=== PATIENT | female | born 1960 | race Caucasian/White ===

== ENCOUNTER 2023-08-06 14:09 | Emergency (ER) | payer OTHER, SELFPAY ==
[2023-08-06] VITALS (22 sets, daily range): BP systolic 104–199; BP diastolic 54–91; PULSE 64–93; RESP 6–18; TEMP 36.8; O2SAT 84–100; BMI 23.8
--- NOTE | 2023-08-06 14:15 | DI.RAD.S_ITS ---
PROCEDURE: XR KNEE RT 1TO2V INDICATIONS: post knee replacement oct, buckled, now deformity/pain TECHNIQUE: 2 views of the knee were acquired. COMPARISON: None. FINDINGS: Bones: There is total knee arthroplasty. There is a transverse fracture with displacement and angulation in the distal femoral shaft involving the femoral component of the prosthesis. No suspicious bony lesions. Soft tissues: No joint effusion. No suspicious soft tissue calcifications. IMPRESSION: 1. Right knee total arthroplasty. There is transverse periprosthesis fracture with displacement and angulation. Dictated by: Clark Arauz M.D. on 08/06/2023 at 14:42 Approved by: Clark Arauz M.D. on 08/06/2023 at 14:44
--- NOTE | 2023-08-06 14:37 | ED_ITS ---
HPI - Extremity Injury (Lower) <Hero Onofre MD - Last Filed: 08/07/23 13:23> General Chief Complaint: Extremity Injury, Lower Stated Complaint: knee pain Time Seen by Provider: 08/06/23 14:15 History of Present Illness HPI Narrative: This is a 62-year-old female with a history of right total knee replacement who arrives by helicopter from [facility]. History is provided by the patient and the transporting crew. Patient says that she was walking up some steps in her home today felt the abrupt onset of pain in her right knee and then the right knee ?collapsed?. She was worried she was going to fall down the stairs and she ended up in a kneeling position. Since then she has had severe pain in the right knee as well as swelling. She tells me that her knee replacement was done 3 years ago at [facility] by a doctor Alan Medrano. Past medical history is otherwise remarkable for vulvar cancer. She has not anticoagulated. She has not had anything to eat today. After reviewing her x-ray, I believe that she will need to be transferred to a tertiary care center and advised her that we will be contacting her orthopedic surgeon for possible transfer, patient is in agreement. Pre arrival medications include 150 mcg of fentanyl, 10 mg of morphine, 8 mg of Zofran and 2 mg of lorazepam Related Data Previous Rx's Medication Instructions Recorded duloxetine 30 mg capsule,delayed 30 mg PO BID #180 caps 06/04/23 release (Cymbalta) trazodone 100 mg tablet 150 mg (1.5 x 100 mg) PO BEDTIME 07/02/23 #45 tabs cyclobenzaprine 10 mg tablet 10 mg PO TID PRN muscle spasm #30 07/05/23 tabs pregabalin 225 mg capsule 225 mg PO BEDTIME #60 caps 07/05/23 pregabalin 75 mg capsule See Rx Instructions PO TID #90 caps 07/05/23 Allergies Allergy/AdvReac Type Severity Reaction Status Date / Time trazodone Allergy Mild TONGUE AND Verified 07/05/23 16:43 LIPS STARTED TO TINGLE Patient History <Hero Onofre MD - Last Filed: 08/07/23 13:23> Medical History (Updated 08/07/23 @ 00:27 by Brianna Blackwell RN) Vulvar lesion Insomnia secondary to chronic pain Fractures (~2018) Chronic back pain (~2019) Ankle pain Chicken pox Encounter for screening mammogram for malignant neoplasm of breast Essential hypertension Chronic pain of right knee Surgical History (Updated 05/14/23 @ 20:40 by America Reese MD) H/O knee surgery History of knee replacement (~2018) Social History Smoking Status: Never smoker additional social history: Patient used to be a dancer Smoking Status: Never smoker Exam <Hero Onofre MD - Last Filed: 08/07/23 13:23> Initial Vital Signs Initial Vital Signs: Vital Signs Pulse Rate 73 08/06/23 14:15 Blood Pressure 199/91 H 08/06/23 14:15 Pulse Oximetry 96 08/06/23 14:15 Patient is somnolent, arouses to voice, no respiratory depression. HENMT Head: normocephalic and atraumatic Resp Effort & Inspection: normal respiratory effort Skin Other: Warm and dry Extrem Other: Right lower extremity has surgical scars consistent with previous total knee replacement. Knee is held at about 35? of flexion. There is swelling about the knee. Any movement of the knee causes the patient considerable pain. She has intact pedal pulses sensation and movement <Danna Feng DO - Last Filed: 08/06/23 23:23> Initial Vital Signs Initial Vital Signs: Vital Signs Pulse Rate 73 08/06/23 14:15 Blood Pressure 199/91 H 08/06/23 14:15 Pulse Oximetry 96 08/06/23 14:15 Course <Hero Onofre MD - Last Filed: 08/07/23 13:23> Orders Ordered: Discontinued Medications Acetaminophen (Acetaminophen 325 Mg Tablet) 975 mg PO Q6H PRN PRN Reason: Pain, Moderate (4-6) Hydromorphone HCl (Hydromorphone 1 Mg Inj) 1 mg IV NOW ONE Stop: 08/06/23 18:11 Last Admin: 08/06/23 18:20 Dose: 1 mg Documented By: SPF Hydromorphone HCl (Hydromorphone 1 Mg Inj) 1 mg IV Q3H PRN PRN Reason: Pain, Severe (7-10) Sodium Chloride (Normal Saline 0.9%) 1,000 mls @ 125 mls/hr IV CONT ASHLIE Last Admin: 08/06/23 15:11 Dose: 125 mls/hr Documented By: OZZY Lorazepam (Lorazepam 2 Mg/Ml Inj) 1 mg IV NOW ONE Stop: 08/06/23 18:56 Last Admin: 08/06/23 18:59 Dose: 1 mg Documented By: OZZY Metoclopramide HCl (Metoclopramide 10 Mg/2 Ml Inj) 10 mg IV NOW ONE Stop: 08/06/23 18:36 Last Admin: 08/06/23 18:46 Dose: 10 mg Documented By: OZZY Consultations Consultation #1: D/W Dr Mitchell quiroz's orthopedist- he is out of town, will facilitate transfer if needed, asks we contact local ortho Consultation #2: D/W [place], Dr Sanchez transfer if possible, will be at least 2 days before this could be done here Vital Signs Vital signs: Vital Signs - 8 hr 08/06/23 15:30 08/06/23 15:42 08/06/23 15:42 Pulse Rate 70 69 Respiratory Rate 15 18 Blood Pressure 148/63 H Pulse Oximetry 98 92 Oxygen Delivery Method Oxygen Flow Rate 08/06/23 16:00 08/06/23 16:16 08/06/23 16:17 Pulse Rate 71 68 Respiratory Rate 15 15 13 Blood Pressure Pulse Oximetry 98 89 L 96 Oxygen Delivery Method Room Air Room Air Room Air Oxygen Flow Rate 08/06/23 16:30 08/06/23 16:30 08/06/23 17:00 Pulse Rate 69 73 Respiratory Rate 11 L 13 Blood Pressure 104/54 L Pulse Oximetry 93 96 Oxygen Delivery Method Room Air Oxygen Flow Rate 08/06/23 17:13 08/06/23 17:13 08/06/23 17:30 Pulse Rate 76 78 Respiratory Rate 9 L 12 Blood Pressure 106/64 Pulse Oximetry 98 Oxygen Delivery Method Room Air Oxygen Flow Rate 08/06/23 17:30 08/06/23 17:51 08/06/23 18:00 Pulse Rate 72 68 Respiratory Rate 14 Blood Pressure 131/60 Pulse Oximetry 99 97 Oxygen Delivery Method Room Air Room Air Oxygen Flow Rate 08/06/23 18:00 08/06/23 18:30 08/06/23 18:30 Pulse Rate 64 Respiratory Rate 6 L Blood Pressure 139/68 144/78 H Pulse Oximetry 84 L Oxygen Delivery Method Nasal Cannula Oxygen Flow Rate 2 08/06/23 19:00 08/06/23 19:00 08/06/23 19:30 Pulse Rate 74 81 Respiratory Rate 13 12 Blood Pressure 134/84 Pulse Oximetry 99 84 L Oxygen Delivery Method Nasal Cannula Nasal Cannula Oxygen Flow Rate 1 1 08/06/23 19:30 08/06/23 19:38 08/06/23 20:00 Pulse Rate 92 H Respiratory Rate 12 16 Blood Pressure 152/66 H Pulse Oximetry 96 99 Oxygen Delivery Method Nasal Cannula Oxygen Flow Rate 4 08/06/23 20:00 08/06/23 20:30 08/06/23 20:30 Pulse Rate 93 H Respiratory Rate 14 Blood Pressure 129/56 L 118/58 L Pulse Oximetry 100 Oxygen Delivery Method Oxygen Flow Rate 08/06/23 21:00 08/06/23 21:00 Pulse Rate 90 Respiratory Rate 14 Blood Pressure 109/59 L Pulse Oximetry 100 Oxygen Delivery Method Oxygen Flow Rate <Danna Feng DO - Last Filed: 08/06/23 23:23> Orders Ordered: Discontinued Medications Acetaminophen (Acetaminophen 325 Mg Tablet) 975 mg PO Q6H PRN PRN Reason: Pain, Moderate (4-6) Hydromorphone HCl (Hydromorphone 1 Mg Inj) 1 mg IV NOW ONE Stop: 08/06/23 18:11 Last Admin: 08/06/23 18:20 Dose: 1 mg Documented By: SPF Hydromorphone HCl (Hydromorphone 1 Mg Inj) 1 mg IV Q3H PRN PRN Reason: Pain, Severe (7-10) Sodium Chloride (Normal Saline 0.9%) 1,000 mls @ 125 mls/hr IV CONT ASHLIE Last Admin: 08/06/23 15:11 Dose: 125 mls/hr Documented By: SPF Lorazepam (Lorazepam 2 Mg/Ml Inj) 1 mg IV NOW ONE Stop: 08/06/23 18:56 Last Admin: 08/06/23 18:59 Dose: 1 mg Documented By: SPF Metoclopramide HCl (Metoclopramide 10 Mg/2 Ml Inj) 10 mg IV NOW ONE Stop: 08/06/23 18:36 Last Admin: 08/06/23 18:46 Dose: 10 mg Documented By: SPF Vital Signs Vital signs: Vital Signs - 8 hr 08/06/23 15:30 08/06/23 15:42 08/06/23 15:42 Pulse Rate 70 69 Respiratory Rate 15 18 Blood Pressure 148/63 H Pulse Oximetry 98 92 Oxygen Delivery Method Oxygen Flow Rate 08/06/23 16:00 08/06/23 16:16 08/06/23 16:17 Pulse Rate 71 68 Respiratory Rate 15 15 13 Blood Pressure Pulse Oximetry 98 89 L 96 Oxygen Delivery Method Room Air Room Air Room Air Oxygen Flow Rate 08/06/23 16:30 08/06/23 16:30 08/06/23 17:00 Pulse Rate 69 73 Respiratory Rate 11 L 13 Blood Pressure 104/54 L Pulse Oximetry 93 96 Oxygen Delivery Method Room Air Oxygen Flow Rate 08/06/23 17:13 08/06/23 17:13 08/06/23 17:30 Pulse Rate 76 78 Respiratory Rate 9 L 12 Blood Pressure 106/64 Pulse Oximetry 98 Oxygen Delivery Method Room Air Oxygen Flow Rate 08/06/23 17:30 08/06/23 17:51 08/06/23 18:00 Pulse Rate 72 68 Respiratory Rate 14 Blood Pressure 131/60 Pulse Oximetry 99 97 Oxygen Delivery Method Room Air Room Air Oxygen Flow Rate 08/06/23 18:00 08/06/23 18:30 08/06/23 18:30 Pulse Rate 64 Respiratory Rate 6 L Blood Pressure 139/68 144/78 H Pulse Oximetry 84 L Oxygen Delivery Method Nasal Cannula Oxygen Flow Rate 2 08/06/23 19:00 08/06/23 19:00 08/06/23 19:30 Pulse Rate 74 81 Respiratory Rate 13 12 Blood Pressure 134/84 Pulse Oximetry 99 84 L Oxygen Delivery Method Nasal Cannula Nasal Cannula Oxygen Flow Rate 1 1 08/06/23 19:30 08/06/23 19:38 08/06/23 20:00 Pulse Rate 92 H Respiratory Rate 12 16 Blood Pressure 152/66 H Pulse Oximetry 96 99 Oxygen Delivery Method Nasal Cannula Oxygen Flow Rate 4 08/06/23 20:00 08/06/23 20:30 08/06/23 20:30 Pulse Rate 93 H Respiratory Rate 14 Blood Pressure 129/56 L 118/58 L Pulse Oximetry 100 Oxygen Delivery Method Oxygen Flow Rate 08/06/23 21:00 08/06/23 21:00 Pulse Rate 90 Respiratory Rate 14 Blood Pressure 109/59 L Pulse Oximetry 100 Oxygen Delivery Method Oxygen Flow Rate MDM - Extremity Injury (Lower) <Hero Onofre MD - Last Filed: 08/07/23 13:23> Lab Data Lab results narrative: COVID negative, CBC with diff and CMP are unremarkable 08/06/23 15:50 08/06/23 15:50 Labs: Lab Results 08/06/23 08/06/23 Range/Units 15:16 15:50 WBC 11.0 (4.5-11.0) X10^3/uL RBC 4.09 (4.0-5.2) X10^6/uL Hgb 12.2 (12.0-16.0) g/dL Hct 36.6 (36-46) % MCV 89.4 (80-100) fL MCH 29.8 (26-34) PG MCHC 33.3 (30-36) % RDW 15.0 H (11.6-14.8) % Plt Count 198 (150-400) X10^3/uL Neut % (Auto) 83.6 H (50-75) % Lymph % (Auto) 11.9 L (25-40) % Redwood % (Auto) 4.1 (3-14) % Eos % (Auto) 0.1 L (2-4) % Baso % (Auto) 0.3 (0-2) % Neut # (Auto) 9200 H (8678-6806) /uL Lymph # (Auto) 1300 (0177-5651) /uL Redwood # (Auto) 500 (0-900) /uL Eos # (Auto) 0 (0-450) /uL Baso # (Auto) 0 (0-100) /uL PT 12.5 (9.4-12.5) SECONDS INR 1.1 (0.9-1.3) Sodium 134 L (137-145) mmol/L Potassium 4.2 (3.4-5.1) mmol/L Chloride 102 (98-107) mmol/L Carbon Dioxide 29 (22-32) mmol/L BUN 11 (7-17) mg/dL Creatinine 0.65 (0.52-1.04) mg/dL Estimated GFR > 60 (>60) mL/min BUN/Creatinine Ratio 16.9 (6-22) Glucose 106 (80-110) mg/dL Calcium 9.1 (8.4-10.2) mg/dL Total Bilirubin 0.8 (0.2-1.3) mg/dL AST 23 (14-36) IU/L ALT 18 (<35) IU/L Alkaline Phosphatase 73 (38-126) U/L Total Protein 7.1 (6.3-8.2) g/dL Albumin 4.2 (3.5-5.0) g/dL Globulin 2.9 (1.7-4.1) g/dL Albumin/Globulin Ratio 1.4 (1.0-2.8) SARS-CoV-2 (PCR) Negative (Negative) <Danna Feng, DO - Last Filed: 08/06/23 23:23> Lab Data Labs: Lab Results 08/06/23 08/06/23 Range/Units 15:16 15:50 WBC 11.0 (4.5-11.0) X10^3/uL RBC 4.09 (4.0-5.2) X10^6/uL Hgb 12.2 (12.0-16.0) g/dL Hct 36.6 (36-46) % MCV 89.4 (80-100) fL MCH 29.8 (26-34) PG MCHC 33.3 (30-36) % RDW 15.0 H (11.6-14.8) % Plt Count 198 (150-400) X10^3/uL Neut % (Auto) 83.6 H (50-75) % Lymph % (Auto) 11.9 L (25-40) % Redwood % (Auto) 4.1 (3-14) % Eos % (Auto) 0.1 L (2-4) % Baso % (Auto) 0.3 (0-2) % Neut # (Auto) 9200 H (6424-0694) /uL Lymph # (Auto) 1300 (4329-7898) /uL Redwood # (Auto) 500 (0-900) /uL Eos # (Auto) 0 (0-450) /uL Baso # (Auto) 0 (0-100) /uL PT 12.5 (9.4-12.5) SECONDS INR 1.1 (0.9-1.3) Sodium 134 L (137-145) mmol/L Potassium 4.2 (3.4-5.1) mmol/L Chloride 102 (98-107) mmol/L Carbon Dioxide 29 (22-32) mmol/L BUN 11 (7-17) mg/dL Creatinine 0.65 (0.52-1.04) mg/dL Estimated GFR > 60 (>60) mL/min BUN/Creatinine Ratio 16.9 (6-22) Glucose 106 (80-110) mg/dL Calcium 9.1 (8.4-10.2) mg/dL Total Bilirubin 0.8 (0.2-1.3) mg/dL AST 23 (14-36) IU/L ALT 18 (<35) IU/L Alkaline Phosphatase 73 (38-126) U/L Total Protein 7.1 (6.3-8.2) g/dL Albumin 4.2 (3.5-5.0) g/dL Globulin 2.9 (1.7-4.1) g/dL Albumin/Globulin Ratio 1.4 (1.0-2.8) SARS-CoV-2 (PCR) Negative (Negative) Imaging Data Extremity x-ray #1: Radiologist's Impression: PROCEDURE: XR KNEE RT 1TO2V INDICATIONS: post knee replacement oct, buckled, now deformity/pain TECHNIQUE: 2 views of the knee were acquired. COMPARISON: None. FINDINGS: Bones: There is total knee arthroplasty. There is a transverse fracture with displacement and angulation in the distal femoral shaft involving the femoral component of the prosthesis. No suspicious bony lesions. Soft tissues: No joint effusion. No suspicious soft tissue calcifications. IMPRESSION: 1. Right knee total arthroplasty. There is transverse periprosthesis fracture with displacement and angulation. Dictated by: Clark Arauz M.D. on 08/06/2023 at 14:42 CT LE: Radiologist's Impression: PROCEDURE: CT KNEE RIGHT WITHOUT CON INDICATIONS: RIGHT KNEE INJURY TECHNIQUE: Noncontrast 1-1.5 mm axial sections acquired from the mid-patella to the proximal tibia, with coronal and sagittal reformats. COMPARISON: [facility], , XR KNEE RT 1TO2V, 08/06/2023, 14:20. FINDINGS: Image quality: Limited by beam hardening artifact related to right knee arthroplasty hardware. Bones: Transverse fracture involving the distal right femur proximal to femoral component of right knee arthroplasty. Distal fracture fragment is dorsally displaced and angulated. No proximal right tibia or fibula fracture identified within limitations related to beam hardening artifact. Soft tissues: Soft tissue swelling noted adjacent to the distal right femur fracture. No large soft tissue hematoma. Small right knee joint effusion. IMPRESSION: Distal right femur periprosthetic fracture. [facility] Narrative Medical decision making narrative: Dr Feng, patient signed out to me by Dr. Onofre I have seen evaluated patient myself she is resting in position of comfort. Good distal pedal pulses but obvious right leg deformity. She is splinted in position of comfort for ortho. Imaging has been reviewed CT and x-ray show periprosthetic distal femur fracture Blood work has been reviewed no anemia leukocytosis or electrolyte abnormality 1845 Dr. Ceballos hospitalist accepts patient. Expected to go to OR tomorrow Discharge Plan Departure Patient Disposition: [facility] Clinical Impression: Flora-prosthetic femoral shaft fracture, Primary hypertension Prescriptions: No Action duloxetine [Cymbalta] 30 mg capsule,delayed release(DR/EC) 30 mg PO BID Qty: 180 3RF Rx Instructions: Or alternative dosing is 60 mg once a day trazodone 100 mg tablet 150 mg PO BEDTIME Qty: 45 6RF Rx Instructions: at bedtime pregabalin 225 mg capsule 225 mg PO BEDTIME Qty: 60 3RF Rx Instructions: EVENING ONLY pregabalin 75 mg capsule See Rx Instructions PO TID Qty: 90 5RF Rx Instructions: 1 tab in am and 2 tabs in afternoon (3rd dose is 225mg tablet) cyclobenzaprine 10 mg tablet 10 mg PO TID PRN (Reason: muscle spasm) Qty: 30 5RF Rx Instructions: stop methocarbamol Referrals: America Reese MD [Primary Care Provider] -
--- NOTE | 2023-08-06 14:54 | DI.CT.S_ITS ---
PROCEDURE: CT KNEE RIGHT WITHOUT CON INDICATIONS: RIGHT KNEE INJURY TECHNIQUE: Noncontrast 1-1.5 mm axial sections acquired from the mid-patella to the proximal tibia, with coronal and sagittal reformats. COMPARISON: [facility], CR, XR KNEE RT 1TO2V, 08/06/2023, 14:20. FINDINGS: Image quality: Limited by beam hardening artifact related to right knee arthroplasty hardware. Bones: Transverse fracture involving the distal right femur proximal to femoral component of right knee arthroplasty. Distal fracture fragment is dorsally displaced and angulated. No proximal right tibia or fibula fracture identified within limitations related to beam hardening artifact. Soft tissues: Soft tissue swelling noted adjacent to the distal right femur fracture. No large soft tissue hematoma. Small right knee joint effusion. IMPRESSION: Distal right femur periprosthetic fracture. Dictated by: Romy Serrano MD, PhD on 08/06/2023 at 15:24 Approved by: Romy Serrano MD, PhD on 08/06/2023 at 15:27
[2023-08-06] MEDS: SODIUM CHLORIDE 0.9% 1,000 ML 125 ML IV (15:11)
[2023-08-06 15:46] LABS: COVID19 -Nasal RAPID Negative (Negative)
[2023-08-06 16:00] LABS: Add Manual Diff / Slide Review NO; Basophils Absolute Auto 0 /uL (0-100); Basophils Percent Auto 0.3 % (0-2); Eosinophils Absolute Auto 0 /uL (0-450); Eosinophils Percent Auto 0.1 % (2-4); Hematocrit 36.6 % (36-46); Hemoglobin 12.2 g/dL (12.0-16.0); Lymphocytes Absolute Auto 1300 /uL (1100-4500); Lymphocytes Percent Auto 11.9 % (25-40); Mean Corpuscular HGB Conc 33.3 % (30-36); Mean Corpuscular Hemoglobin 29.8 PG (26-34); Mean Corpuscular Volume 89.4 fL (80-100); Monocytes Absolute Auto 500 /uL (0-900); Monocytes Percent Auto 4.1 % (3-14); Neutrophils Absolute Auto 9200 /uL (1500-7000); Neutrophils Percent Auto 83.6 % (50-75); Platelet Count 198 X10^3/uL (150-400); Red Blood Cell Count 4.09 X10^6/uL (4.0-5.2)
[2023-08-06 16:16] LABS: INR 1.1 (0.9-1.3); Prothrombin Time 12.5 SECONDS (9.4-12.5)
--- NOTE | 2023-08-06 16:22 | PC.NURSE ---
Addendum entered by Ijeoma Pacheco CNA 08/06/23 18:52: pt. is accepted by hospitalist at [facility] Dr. Santoyo, [facility] will call with bed update and when to set up transport Addendum entered by Ijeoma Pacheco CNA 08/06/23 17:01: spoke with Nils at [facility] transfer [place], transfer center is still working on placing page out for ortho to consult/transfer pt. Original Note: [employer] OFFICER note: this electronic video games servicer contacted [facility] transfer [place] and spoke with Nils, pushed images and faxed facesheet. Transfer center will call back with ortho on line.
[2023-08-06 16:24] LABS: Alanine Aminotransferase 18 IU/L (<35); Albumin 4.2 g/dL (3.5-5.0); Albumin Globulin Ratio 1.4 (1.0-2.8); Alkaline Phosphatase 73 U/L (38-126); Aspartate Aminotransferase 23 IU/L (14-36); BUN Creatinine Ratio 16.9 (6-22); Bilirubin Total 0.8 mg/dL (0.2-1.3); Blood Urea Nitrogen 11 mg/dL (7-17); Calcium 9.1 mg/dL (8.4-10.2); Carbon Dioxide 29 mmol/L (22-32); Chloride 102 mmol/L (98-107); Estimated Glomerular Filt Rate > 60 mL/min (>60); Globulin 2.9 g/dL (1.7-4.1); Glucose 106 mg/dL (80-110); HEMOLYSIS < 15 (0-50); Potassium 4.2 mmol/L (3.4-5.1); Sodium 134 mmol/L (137-145); Total Protein 7.1 g/dL (6.3-8.2)
--- NOTE | 2023-08-06 17:53 | PC.NURSE ---
Pt is resting in bed, chest rise and fall noted, eyes closed and appears relaxed. Pt remains trandelenburg position for her comfort
[2023-08-06] MEDS: HYDROMORPHONE 1 MG INJ IV (18:20)
[2023-08-06] MEDS: METOCLOPRAMIDE 10 MG/2 ML INJ IV (18:46)
[2023-08-06] MEDS: LORazepam 2 MG/ML INJ 1 MG IV (18:59)
--- NOTE | 2023-08-06 19:00 | PC.NURSE ---
Provider at bedside. Pt was pre medicated (see MAR) before ortho glass application to right thigh through calf to help support pt's leg. Soft fluff applied to patients skin followed by orthoglass and wrapped with zoran wrap. Pt tolerated procedure well.
--- NOTE | 2023-08-06 20:18 | PC.NURSE ---
pt sleeping, equal chest rise and fall, on monitoring equipment; at bedside, updated; call light in close reach, encouraged to use for any needs
--- NOTE | 2023-08-06 20:55 | PC.NURSE ---
Patient's brought in a pill bottle as the patient was departing; he stated that she had taken (2) 10mg Oxycodone tablets when the accident happened @ 1230pm.
== END 2023-08-06 21:08 | disposition short-term general hospital (02) ==
PROVIDERS: Emergency Medicine; Emergency Provider Emergency Medicine; Family Provider Family Medicine; PCP Family Medicine
DX: M97.8XXA Periprosthetic fracture around other internal prosthetic joint, initial encounter (principal); I10 Essential (primary) hypertension; Z20.822 Contact with and (suspected) exposure to COVID-19
CPT/HCPCS: 73560; 73700; 80053; 85025; 85610; 87635; 96361; 96374; 96375; 99284; 99285; J1170; J2060; J2765

== ENCOUNTER → 2024-01-29 14:11 | Outpatient (CLI) | payer OTHER, SELFPAY ==
--- NOTE | 2024-01-29 14:13 | DI.CT.S_ITS ---
PROCEDURE: CT LE RT WO CON INDICATIONS: STATUS POST FRACTURE OF FEMUR TECHNIQUE: Noncontrast 3 mm axial sections acquired of the right femur, with coronal and sagittal reformats. COMPARISON: [facility], CR, XR FEMUR 2+ VIEWS RIGHT, 01/17/2024, 13:54. FINDINGS: Image quality: Diagnostic. Bones: Patient is status post internal fixation of previously noted distal right femoral shaft fracture with intramedullary mehnaz and fixation screws in place. There is prior right total knee arthroplasty with prosthesis in place. There is interval healing at distal femoral shaft fracture site with partial bony union and small amount of surrounding callus formation. No evidence of hardware loosening or failure. No new fracture or dislocation. No suspicious intraosseous lesion. Soft tissues: There is no discrete soft tissue mass or drainable fluid collection. No abnormal soft tissue calcifications. No significant right hip are right knee joint effusion is seen. IMPRESSION: 1. Postsurgical changes from prior ORIF of right distal femoral shaft and right total knee arthroplasty with anatomic right femoral alignment. No evidence of hardware loosening or failure. 2. Interval slight healing at distal femoral shaft fracture site. No new fracture or dislocation. No suspicious bony lesions. 3. No gross right hip or right thigh soft tissue abnormalities. Dictated by: Tremaine Holloway M.D. on 01/29/2024 at 17:35 Approved by: Tremaine Holloway M.D. on 01/29/2024 at 17:38
== END ==
PROVIDERS: Family Provider Family Medicine; PCP Family Medicine; Referring Provider Orthopaedic Surgery Adult Reconstructive Orthopaedic Surgery; Visit Provider Orthopaedic Surgery Adult Reconstructive Orthopaedic Surgery
DX: S72.301D Unspecified fracture of shaft of right femur, subsequent encounter for closed fracture with routine healing (principal); Z96.651 Presence of right artificial knee joint
CPT/HCPCS: 73700

== ENCOUNTER → 2024-04-10 12:54 | Outpatient (CLI) | payer OTHER, SELFPAY ==
[2024-04-10 19:45] LABS: Add Manual Diff / Slide Review NO; Basophils Absolute Auto 0 /uL (0-100); Basophils Percent Auto 0.7 % (0-2); Eosinophils Absolute Auto 200 /uL (0-450); Eosinophils Percent Auto 2.8 % (2-4); Hemoglobin 13.5 g/dL (12.0-16.0); Lymphocytes Absolute Auto 2400 /uL (1100-4500); Lymphocytes Percent Auto 40.1 % (25-40); Mean Corpuscular HGB Conc 33.7 % (30-36); Mean Corpuscular Hemoglobin 29.9 PG (26-34); Mean Corpuscular Volume 88.9 fL (80-100); Monocytes Absolute Auto 400 /uL (0-900); Monocytes Percent Auto 7.4 % (3-14); Neutrophils Absolute Auto 2900 /uL (1500-7000); Platelet Count 242 X10^3/uL (150-400); White Blood Cell Count 5.9 X10^3/uL (4.5-11.0)
[2024-04-10 19:57] LABS: Alanine Aminotransferase 19 IU/L (<35); Albumin 4.4 g/dL (3.5-5.0); Albumin Globulin Ratio 1.5 (1.0-2.8); Alkaline Phosphatase 101 U/L (38-126); Aspartate Aminotransferase 27 IU/L (14-36); BUN Creatinine Ratio 27.8 (6-22); Bilirubin Total 0.7 mg/dL (0.2-1.3); Blood Urea Nitrogen 20 mg/dL (7-17); Calcium 9.8 mg/dL (8.4-10.2); Carbon Dioxide 29 mmol/L (22-32); Chloride 102 mmol/L (98-107); Estimated Glomerular Filt Rate > 60 mL/min (>60); Globulin 2.9 g/dL (1.7-4.1); Glucose 97 mg/dL (80-110); HEMOLYSIS < 15 (0-50); Potassium 4.6 mmol/L (3.4-5.1); Sodium 135 mmol/L (137-145); Total Protein 7.3 g/dL (6.3-8.2)
[2024-04-10 20:23] LABS: Thyroid Stimulating Hormone 1.85 uIU/mL (0.47-4.68)
== END ==
PROVIDERS: Family Provider Family Medicine; PCP Family Medicine; Visit Provider Family Medicine
DX: I10 Essential (primary) hypertension (principal)
CPT/HCPCS: 80053; 84443; 85025

== ENCOUNTER → 2024-05-16 16:40 | Outpatient (CLI) | payer OTHER, SELFPAY ==
--- NOTE | 2024-05-16 16:41 | DI.MG.S_ITS ---
BILATERAL DIGITAL SCREENING MAMMOGRAM 3D/2D WITH CAD: 05/16/2024 CLINICAL: Baseline exam. Routine screening. No prior exams were available for comparison. There are scattered areas of fibroglandular density (category b / 25%-50% glandular tissue). Current study was also evaluated with a Computer Aided Detection (CAD) system. No significant masses, calcifications, or other findings are seen in either breast. IMPRESSION: NEGATIVE There is no mammographic evidence of malignancy. A 1 year screening mammogram is recommended. Based on the Tyrer Cuzick model (a risk assessment model) the patient's lifetime risk is 7.7% and her 10 year risk is 3.4%. According to the ACR, ACS, and NCCN guidelines, an annual breast MRI exam along with mammogram is recommended if the patient's lifetime risk is 20% or greater. This exam was interpreted at Station ID: [id number]. NOTE: For mammograms, a report in lay terms will be sent to the patient. Approximately 15% of breast malignancies will not be visualized mammographically. In the management of a palpable breast mass, a negative mammogram must not discourage biopsy of a clinically suspicious lesion. Electronically Signed By: Jerry berman/delmer:05/19/2024 12:08:13 letter sent: Normal Exam ACR BI-RADS Category 1: Negative
== END ==
PROVIDERS: Family Provider Family Medicine; PCP Family Medicine; Referring Provider Family Medicine; Visit Provider Family Medicine
DX: Z12.31 Encounter for screening mammogram for malignant neoplasm of breast (principal)
CPT/HCPCS: 77063; 77067

== ENCOUNTER 2024-08-26 07:46 | Day surgery (SDC) | payer OTHER, SELFPAY ==
[2024-08-26 08:07] VITALS: BP 134/86; PULSE 80; RESP 16; TEMP 36.7; O2SAT 98
[2024-08-26] MEDS: SODIUM CHLORIDE 0.9% 1,000 ML 84 ML IV (08:17)
--- NOTE | 2024-08-26 08:58 | P.HP_ITS ---
History of Present Illness History of Present Illness Date Patient Seen: 08/26/24 Time Patient Seen: 08:58 Chief complaint: Screening Colonoscopy Narrative: 63-year-old female on chronic opiate therapy, chronic constipation she averages 1 bowel movement per week. Presents for screening colonoscopy. States she has had previous colonoscopies. [facility] Medical History (Updated 06/06/24 @ 15:14 by America Reese MD) Adverse effect of other opioids, initial encounter Insomnia secondary to chronic pain Fractures (~2018) Chicken pox Encounter for screening mammogram for malignant neoplasm of breast Essential hypertension Surgical History (Updated 05/14/23 @ 20:40 by America Reese MD) H/O knee surgery History of knee replacement (~2018) Social History Smoking Status: Never smoker additional social history: 5 children: 3 . 2 pt 3 are in [place] 1 in [place]= pt 1 [place] -- helpful to pt, [place] -- [place] -- pt unable to work due to non healed femur fracture requiring daily opioid therapy- limited options for treatment. seeing multiple specialists seeing therapist was working [employer], vocational rehab 05/2024 Patient used to be a [employer] Home Medications and Allergies Home Medications Medication Instructions Recorded Confirmed Type cyclobenzaprine 10 mg tablet 10 mg PO 3XD 10/02/23 08/26/24 History bisacodyl 10 mg rectal suppository 10 mg [place] DAILY PRN constipation 11/23/23 08/06/24 Rx (Dulcolax (bisacodyl)) #30 ea ondansetron HCl 4 mg tablet 4 mg PO BID PRN nausea and 12/28/23 08/26/24 Rx vomiting #60 tabs celecoxib 200 mg capsule (Celebrex) 200 mg PO BID anti inflammatory 06/27/24 08/26/24 Rx for pain #180 caps lubiprostone 24 mcg capsule 24 mcg PO BID constipation #60 caps 06/27/24 08/26/24 Rx duloxetine 30 mg capsule,delayed See Rx Instructions PO BID pain 06/30/24 08/26/24 Rx release management #90 caps omeprazole 20 mg capsule,delayed 20 mg PO DAILY protects stomach 07/01/24 08/26/24 Rx release #90 caps amlodipine 2.5 mg tablet 2.5 mg PO DAILY for blood 07/04/24 08/06/24 Rx pressure. take every day even if normal. #90 tabs buprenorphine 2 mg-naloxone 0.5 mg See Rx Instructions sublingual BID 07/07/24 08/06/24 Rx sublingual tablet READ INSTRUCTIONS carefully. DISSOLVE under tongue #60 tabs tizanidine 4 mg tablet See Rx Instructions PO Q8H PRN 07/08/24 08/26/24 Rx muscle spasticity #60 tabs amlodipine 2.5 mg tablet 2.5 mg PO DAILY blood pressure. 08/06/24 08/26/24 Rx take every day even if normal. #90 tabs fentanyl 25 mcg/hr transdermal 1 patch transdermal Q72H pain 08/06/24 08/26/24 Rx patch control. #10 ea sodium,potassium,mag sulfates 17.5 See Rx Instructions PO .COMPLEX 08/06/24 08/06/24 Rx gram-3.13 gram-1.6 gram oral soln #354 mL (Suprep Bowel Prep Kit) buprenorphine 2 mg-naloxone 0.5 mg See Rx Instructions .Route 08/21/24 08/26/24 Rx sublingual tablet .COMPLEX READ INSTRUCTIONS carefully. DISSOLVE under tongue #60 tabs zolpidem 10 mg tablet (Ambien) 10 mg PO BEDTIME PRN insomnia #30 08/25/24 08/26/24 Rx tabs Allergies Allergy/AdvReac Type Severity Reaction Status Date / Time No Known Drug Allergies Allergy Verified 08/26/24 08:02 Review of Systems Review of Systems ROS: Yes All systems reviewed with the patient and are negative except as otherwise documented Exam Vital Signs (past 8 hours): - 08/26/24 08:07 Temperature 98.0 F Pulse Rate 80 Respiratory Rate 16 Blood Pressure 134/86 Pulse Oximetry 98 Oxygen Delivery Method Room Air Oxygen Delivery Method Room Air Narrative Exam Narrative: Gen: NAD, sitting comfortably in bed, appears well HEENT: Sclera are anicteric, head is normocephalic and atraumatic, trachea is midline. CV: RRR, no JVD Resp: clear to auscultation bilaterally, equal chest wall movement bilaterally Abd: soft, nontender, normoactive bowel sounds Ext: no edema, full range of motion Neuro: Cranial nerves II-XII grossly intact, no focal deficits Skin: No erythema or ecchymosis Assessment & Plan Assessment and plan (1) Colon cancer screening: Status: Acute (2) Chronic, continuous use of opioids: Status: Acute Assessment & Plan narrative: Patient presents for colonoscopy. Planned for propofol monitored anesthesia. Risks, benefits, alternatives to colonoscopy explained, including but not limited to bowel perforation or other serious complication requiring surgery at less than 1 in 5000 colonoscopies, abdominal pain, cramping or bleeding and less than 1% of colonoscopies, and the chances that we find a diagnosis that would require further intervention of about 2%. Patient agrees to proceed. Time-Based Coding :: [TOTAL MINUTES] spent with patient and on the chart (including review of chart, obtaining history, exam, reviewing outside data, placing orders, documenting exam and treatment plan, and counseling patient) on [DATE]. [employer] Document charge(s): No
--- NOTE | 2024-08-26 09:30 | PM.OP.COLON ---
Operative Date/Time/Diagnoses Date of procedure: 08/26/24 Time of procedure: 09:31 Pre-op diagnosis: Chronic constipation, screening Post-op diagnosis: same Procedure & Clinicians Study performed: Colonoscopy Same procedure as scheduled: Yes Indications: Chronic constipation, colon screening Surgeon: To Raygoza Procedure Notes SCOAP/Timeout: Performed Procedure in detail: Time-out was performed. Mac was induced. Patient was placed in left lateral decubitus position. The perineum was inspected without any gross abnormality. Lubricated pediatric colonoscope was inserted and advanced to the cecum. The terminal ileum was intubated. The colonoscope was withdrawn slowly inspecting the circumference of the colon. Very small polyps may have been missed, prep quality was adequate. Retroflexed view of the rectum showed large, prolapsed nonbleeding internal hemorrhoids. The scope was withdrawn the patient was taken to PACU in good condition. Scope withdrawal time: 7 Sedation minutes: 21 Findings: internal hemorrhoids Specimen(s): none sent Complications: none Post-procedure Recommendations: Colonoscopy in 10 years Follow up: as needed Disposition: PACU
[2024-08-26 09:34] VITALS: BP 145/74; PULSE 92; RESP 17; TEMP 36.6; O2SAT 95
[2024-08-26 09:38] VITALS: BP 120/61; PULSE 76; RESP 15; TEMP 36.6; O2SAT 97
[2024-08-26 09:49] VITALS: BP 124/73; PULSE 70; RESP 18; TEMP 36.6; O2SAT 99
== END 2024-08-26 10:03 | disposition home or self-care (01) ==
PROVIDERS: Family Provider Family Medicine; PCP Family Medicine; Referring Provider Surgery; Visit Provider Surgery
PROC: 0DJD8ZZ Inspection of Lower Intestinal Tract, Via Natural or Artificial Opening Endoscopic (ICD-10-PCS; CPT 45378; principal; 2024-08-26 08:45)
DX: Z12.11 Encounter for screening for malignant neoplasm of colon (principal); K59.03 Drug induced constipation; Z79.891 Long term (current) use of opiate analgesic; K64.8 Other hemorrhoids
CPT/HCPCS: 45378; J2250; J2704